=== PATIENT | female | born 1965 | race Caucasian/White ===

== ENCOUNTER → 2018-09-19 | Emergency (ER) | payer OTHER ==
[~2018-09-19] VITALS: Ht 157.5 cm; Wt 54.4 kg
[2018-09-19 01:00] VITALS: BP 110/82
== END ==
LOC: M.ERS 00:59
DX: T14.8XXA Other injury of unspecified body region, initial encounter (principal); W57.XXXA Bitten or stung by nonvenomous insect and other nonvenomous arthropods, initial encounter; Y93.89 Activity, other specified; Y92.89 Other specified places as the place of occurrence of the external cause; Y99.8 Other external cause status